=== PATIENT | female | born 1975 | race Caucasian/White ===

== ENCOUNTER 2020-09-09 10:28 | Emergency (ER) | payer OTHER ==
[2020-09-09] MEDS ORDERED: Ondansetron 4 MG/2 ML SDV IV ONE (10:58)
[2020-09-09] MEDS ORDERED: HYDROmorphone 1 MG/ML Syringe IVPUSH ONE (11:13)
--- NOTE | 2020-09-09 11:13 | EDM.PDOC ---
ED HPI GENERAL MEDICAL PROBLEM - General Chief Complaint: Genitourinary Problem Stated Complaint: NO URINATION COMPLICATIONS Time Seen by Provider: 09/09/20 10:59 Source of Information: Reports: Patient, RN. Denies: Old Records History Limitations: Reports: Other (no old records) - History of Present Illness INITIAL COMMENTS - FREE TEXT/NARRATIVE: 45 yo female presents with inability to void since yesterday with associated nausea and vomiting. Had a total hysterectomy in May of this year. Subsequently developed a post op infection requiring drainage. Was not having any issues with urination until yesterday morning. Not able to eat/drink due to her nausea. Is not dizzy with standing. No fever. Onset Date: 09/08/20 Duration: Day(s): (1), Getting Worse Location: Reports: Pelvis Quality: Reports: Pressure Severity: Severe Improves with: Reports: Medication (better in ER with Dilaudid) Worsens with: Reports: Other (time) Context: Reports: Other (See HPI) Associated Symptoms: Reports: Nausea/Vomiting. Denies: Fever/Chills Treatments POULTRY BUYER: Reports: Other (see below) (none) Abdomen Pain Score (Numeric/FACES): 10 - Related Data Allergies Allergy/AdvReac Type Severity Reaction Status Date / Time azithromycin Allergy Other Verified 09/09/20 10:59 [From Zithromax Z-Hugh] Home Meds: Home Meds traMADol [Ultram] 50 mg PO ASDIRECTED PRN 09/09/20 [History] ED ROS GENERAL - Review of Systems Review Of Systems: See Below Constitutional: Reports: No Symptoms HEENT: Reports: No Symptoms Respiratory: Reports: No Symptoms Cardiovascular: Reports: No Symptoms Endocrine: Reports: No Symptoms GI/Abdominal: Reports: Nausea, Vomiting. Denies: Black Stool, Bloody Stool, Constipation, Diarrhea, Distension, Hematemesis, Hematochezia, Melena : Reports: Urinary Retention, Other (pelvic bowman) Musculoskeletal: Reports: No Symptoms Skin: Reports: No Symptoms Neurological: Reports: No Symptoms ED EXAM, RENAL/ - Physical Exam Exam: See Below Exam Limited By: No Limitations General Appearance: Alert, WD/WN, Mild Distress Eye Exam: Bilateral Eye: Normal Inspection Ears: Normal External Exam, Normal Canal, Hearing Grossly Normal Nose: Normal Inspection, No Blood Throat/Mouth: Normal Inspection, Normal Lips, Normal Oropharynx, Normal Voice, No Airway Compromise Head: Atraumatic, Normocephalic Neck: Normal Inspection Respiratory/Chest: No Respiratory Distress, Lungs Clear, Normal Breath Sounds, No Accessory Muscle Use Cardiovascular: Regular Rate, Rhythm, No Edema GI/Abdominal: Normal Bowel Sounds, Soft, No Distention, Tender (pelvic). No: Non-Tender, Distended Back Exam: Normal Inspection Extremities: Normal Inspection, Normal Range of Motion, Non-Tender, No Pedal Edema Neurological: Alert, Oriented, CN II-XII Intact, Normal Cognition, No Motor/Sensory Deficits Psychiatric: Normal Affect, Normal Mood Skin Exam: Warm, Dry, Intact, Normal Color, No Rash Course - Vital Signs Text/Narrative:: Bladder scan not working correctly. Last Recorded V/S: Last Vital Signs Temp 36.4 C 09/09/20 11:24 Pulse 72 09/09/20 12:59 Resp 10 L 09/09/20 12:59 BP 174/91 H 09/09/20 12:59 Pulse Ox 98 09/09/20 12:59 - Orders/Labs/Meds Orders: Active Orders 24 hr Category Date Time Status Bladder Scan [RC] ASDIRECTED Care 09/09/20 10:33 Active Riggins Catheter Insertion [Insert Urinary Catheter] [OM. Care 09/09/20 11:00 Ordered PC] Q24H Urinary Catheter Assessment [RC] ASDIRECTED Care 09/09/20 10:58 Active Lactated Ringers [Ringers, Lactated] 1,000 ml Med 09/09/20 11:45 Active IV ASDIRECTED Sodium Chloride 0.9% [Normal Saline] 100 ml Med 09/09/20 12:00 Active IV ASDIRECTED Medication Orders Lactated Ringer's (Ringers, Lactated) 1,000 mls @ 500 mls/hr IV ASDIRECTED BENJAMIN Last Admin: 09/09/20 11:46 Dose: 500 mls/hr Documented by: ELENA Sodium Chloride (Normal Saline) 100 mls @ 3 mls/sec IV ASDIRECTED BENJAMIN Last Admin: 09/09/20 12:07 Dose: 3 mls/sec Documented by: ANA Labs: Laboratory Tests 09/09/20 09/09/20 09/09/20 Range/Units 10:57 10:57 11:20 WBC 9.3 (4.5-11.0) K/uL RBC 5.77 H (3.30-5.50) M/uL Hgb 16.5 H (12.0-15.0) g/dL Hct 50.6 H (36.0-48.0) % MCV 88 (80-98) fL MCH 29 (27-31) pg MCHC 33 (32-36) % Plt Count 258 (150-400) K/uL Sodium 135 L (140-148) mmol/L Potassium 3.9 (3.6-5.2) mmol/L Chloride 104 (100-108) mmol/L Carbon Dioxide 23 (21-32) mmol/L Anion Gap 11.9 (5.0-14.0) mmol/L BUN 11 (7-18) mg/dL Creatinine 1.1 H (0.6-1.0) mg/dL Est Cr Clr Drug Dosing 51.62 mL/min Estimated GFR (MDRD) 54 L (>60) Glucose 108 H (74-106) mg/dL Calcium 8.7 (8.5-10.1) mg/dL C-Reactive Protein (0.0-0.3) mg/dL Urine Color Yellow (YELLOW) Urine Appearance Turbid A (CLEAR) Urine pH 5.5 (5.0-8.0) Ur Specific [place] >= 1.030 (1.008-1.030) Urine Protein 30 H (NEGATIVE) mg/dL Urine Glucose (UA) Negative (NEGATIVE) mg/dL Urine Ketones Negative (NEGATIVE) mg/dL Urine Occult Blood Large H (NEGATIVE) Urine Nitrite Negative (NEGATIVE) Urine Bilirubin Small H (NEGATIVE) Urine Urobilinogen 0.2 (0.2-1.0) EU/dL Ur Leukocyte Esterase Negative (NEGATIVE) Urine RBC 40-50 H (0-5) Urine WBC Not seen (0-5) Ur Epithelial Cells Not seen Amorphous Sediment Occasional Urine Bacteria Occasional Urine Mucus Occasional Urinalysis Comment 09/09/20 Range/Units 11:46 WBC (4.5-11.0) K/uL RBC (3.30-5.50) M/uL Hgb (12.0-15.0) g/dL Hct (36.0-48.0) % MCV (80-98) fL MCH (27-31) pg MCHC (32-36) % Plt Count (150-400) K/uL Sodium (140-148) mmol/L Potassium (3.6-5.2) mmol/L Chloride (100-108) mmol/L Carbon Dioxide (21-32) mmol/L Anion Gap (5.0-14.0) mmol/L BUN (7-18) mg/dL Creatinine (0.6-1.0) mg/dL Est Cr Clr Drug Dosing mL/min Estimated GFR (MDRD) (>60) Glucose (74-106) mg/dL Calcium (8.5-10.1) mg/dL C-Reactive Protein 0.07 (0.0-0.3) mg/dL Urine Color (YELLOW) Urine Appearance (CLEAR) Urine pH (5.0-8.0) Ur Specific [place] (1.008-1.030) Urine Protein (NEGATIVE) mg/dL Urine Glucose (UA) (NEGATIVE) mg/dL Urine Ketones (NEGATIVE) mg/dL Urine Occult Blood (NEGATIVE) Urine Nitrite (NEGATIVE) Urine Bilirubin (NEGATIVE) Urine Urobilinogen (0.2-1.0) EU/dL Ur Leukocyte Esterase (NEGATIVE) Urine RBC (0-5) Urine WBC (0-5) Ur Epithelial Cells Amorphous Sediment Urine Bacteria Urine Mucus Urinalysis Comment Meds: Medications Generic Name Dose Route Start Last Admin Trade Name Freq PRN Reason Stop Dose Admin Lactated Ringer's 1,000 mls @ 500 mls/hr 09/09/20 11:45 09/09/20 11:46 Ringers, Lactated IV 500 mls/hr ASDIRECTED BENJAMIN Administration Sodium Chloride 100 mls @ 3 mls/sec 09/09/20 12:00 09/09/20 12:07 Normal Saline IV 3 mls/sec ASDIRECTED BENJAMIN Administration Discontinued Medications Generic Name Dose Route Start Last Admin Trade Name Freq PRN Reason Stop Dose Admin Hydromorphone HCl 1 mg 09/09/20 11:13 09/09/20 11:16 Dilaudid IVPUSH 09/09/20 11:14 1 mg ONETIME ONE Administration Hydromorphone HCl 0.5 mg 09/09/20 11:47 09/09/20 11:54 Dilaudid IVPUSH 09/09/20 11:48 0.5 mg ONETIME ONE Administration Hydromorphone HCl 0.5 mg 09/09/20 12:22 09/09/20 12:27 Dilaudid IVPUSH 09/09/20 12:23 0.5 mg ONETIME ONE Administration Hydromorphone HCl 0.5 mg 09/09/20 12:57 09/09/20 13:02 Dilaudid IVPUSH 09/09/20 12:58 0.5 mg ONETIME ONE Administration Iopamidol 100 ml 09/09/20 11:47 09/09/20 12:07 Isovue-300 (61%) IV 09/09/20 11:48 100 ml ONETIME ONE Administration Ketorolac Tromethamine 30 mg 09/09/20 13:07 09/09/20 13:15 Toradol IVPUSH 09/09/20 13:08 30 mg ONETIME ONE Administration Ondansetron HCl 4 mg 09/09/20 10:58 09/09/20 11:06 Zofran IV 09/09/20 10:59 4 mg ONETIME ONE Administration Ondansetron HCl 4 mg 09/09/20 11:50 09/09/20 11:54 Zofran IVPUSH 09/09/20 11:51 4 mg ONETIME ONE Administration Sodium Chloride 10 ml 09/09/20 11:47 09/09/20 12:07 Saline Flush FLUSH 09/09/20 11:48 10 ml ONETIME ONE Administration Tamsulosin HCl 0.4 mg 09/09/20 13:07 09/09/20 13:17 Flomax PO 09/09/20 13:08 0.4 mg ONETIME ONE Administration - Radiology Interpretation Free Text/Narrative:: CT abd/pelvis with IV contrast- - Re-Assessments/Exams Free Text/Narrative Re-Assessment/Exam: 09/09/20 11:43 Riggins catheter placed and very little urine was found in the bladder, no relief afforded with this procedure. Free Text/Narrative Re-Assessment/Exam: 09/09/20 14:04 Feeling pain-free after Toradol IV, wants to go home. Departure - Departure Time of Disposition: 14:15 Disposition: Home, Self-Care 01 Condition: Fair Clinical Impression: Ureterolithiasis, Mild dehydration - Discharge Information *PRESCRIPTION DRUG MONITORING PROGRAM REVIEWED*: Yes *COPY OF PRESCRIPTION DRUG MONITORING REPORT IN PATIENT JAYE: Yes Instructions: Kidney Stones, [id number] Referrals: PCP,None [Primary Care Provider] - Forms: ED Department Discharge Additional Instructions: Take Aleve or the generic form 2 every 8 hrs with food, next dose after 7 pm today. Add Percocet for added pain relief up to 2 every 6 hrs. Take Flomax once daily starting tomorrow. No driving today. Strain your urine and save any sediment for testing. F/U with your doctor later this week for recheck. Take Zofran as directed for nausea control. Return as needed. Sepsis Event Note (ED) - Focused Exam Vital Signs: Vital Signs Temp Pulse Resp BP Pulse Ox 09/09/20 12:59 72 10 L 174/91 H 98 09/09/20 11:24 36.4 C 63 15 172/96 H 97 09/09/20 11:23 36.4 C 63 15 172/96 H 97 - My Orders Last 24 Hours: My Active Orders 09/09/20 10:33 Bladder Scan [RC] ASDIRECTED 09/09/20 10:58 Urinary Catheter Assessment [RC] ASDIRECTED 09/09/20 11:00 Riggins Catheter Insertion [Insert Urinary Catheter] [OM.PC] Q24H 09/09/20 11:45 Lactated Ringers [Ringers, Lactated] 1,000 ml IV ASDIRECTED 09/09/20 12:00 Sodium Chloride 0.9% [Normal Saline] 100 ml IV ASDIRECTED - Assessment/Plan Last 24 Hours: My Active Orders 09/09/20 10:33 Bladder Scan [RC] ASDIRECTED 09/09/20 10:58 Urinary Catheter Assessment [RC] ASDIRECTED 09/09/20 11:00 Riggins Catheter Insertion [Insert Urinary Catheter] [OM.PC] Q24H 09/09/20 11:45 Lactated Ringers [Ringers, Lactated] 1,000 ml IV ASDIRECTED 09/09/20 12:00 Sodium Chloride 0.9% [Normal Saline] 100 ml IV ASDIRECTED
[2020-09-09] MEDS ORDERED: Lactated Ringers 1,000 ML IV SCH (11:45)
[2020-09-09] MEDS ORDERED: HYDROmorphone 0.5 MG/0.5 ML Syringe IVPUSH ONE ×3 (11:47→12:57)
[2020-09-09] MEDS ORDERED: Iopamidol 612 MG/ML 500 ML Multipack Bottle IV ONE (11:47)
[2020-09-09] MEDS ORDERED: Ondansetron 4 MG/2 ML SDV IVPUSH ONE (11:50)
[2020-09-09] MEDS: Sodium Chloride 0.9% 10 ML Syringe FLUSH ONE ×2 (11:58→12:07)
[2020-09-09] MEDS ORDERED: Sodium Chloride 0.9% 100 ML IV SCH (12:00)
--- NOTE | 2020-09-09 13:04 | CRLCT ---
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 Isovue 100 mL Isovue-300 Comparison: No comparison studies are available. Findings: The heart size is normal. Basilar atelectasis. Spleen adrenal glands, pancreas appears unremarkable cholecystectomy intra and extrahepatic biliary dilatation. The liver otherwise appears unremarkable. Normal caliber abdominal aorta Normal appendix. The bowel is unremarkable no obstruction. Left kidney is enlarged with delayed nephrogram moderate hydronephrosis hydroureter. Mild perinephric stranding. There is a 4 millimeter left distal ureteral stone approximately 1 cm from the UVJ. Right kidney is unremarkable. Hysterectomy. Small amount of free fluid in the pelvis. Urinary bladder decompressed with Riggins 1.0 cyst left ovary. Small subcentimeter rim to fat density left anterior abdomen probably reflects an area fat necrosis. Small fat containing right inguinal hernia. No suspicious bony lesions. Impression: 1. Moderate hydronephrosis and hydroureter of the left kidney with delayed nephrogram. There is a 4 millimeter left distal ureteral stone. 2. Hysterectomy .Small amount free fluid in pelvis. Please note that all CT scans at this facility use dose modulation, iterative reconstruction, and/or weight-based dosing when appropriate to reduce radiation dose to as low as reasonably achievable. Dictated by Diana Peterson MD @ Sep 09 2020 12:53PM Signed by Dr. Diana Peterson @ Sep 09 2020 1:01PM
[2020-09-09] MEDS ORDERED: Ketorolac 30 MG/ML SDV IVPUSH ONE (13:07)
[2020-09-09] MEDS ORDERED: Tamsulosin 0.4 MG Cap.ER PO ONE (13:07)
== END 2020-09-09 14:30 | disposition home or self-care (01) ==
LOC: JP.ED 10:28
DX: N13.2 Hydronephrosis with renal and ureteral calculous obstruction (principal); E86.0 Dehydration; Z88.1 Allergy status to other antibiotic agents
CPT/HCPCS: 36415; 74177; 80048; 81001; 85027; 86140; 96374; 96375; 96376; 99284; A9270; J1170; J1885; J2405; J7120; Q9967